=== PATIENT | female | born 1935 | race Caucasian/White ===

== ENCOUNTER → 2023-10-04 11:19 | Outpatient (REF) | payer OTHER, SELFPAY | LOC: RCS 11:19 | PROVIDERS: ATTENDING PHYSICIAN Internal Medicine; FAMILY PHYSICIAN Student in an Organized Health Care Education/Training Program | DX: I42.9 Cardiomyopathy, unspecified (principal); I50.22 Chronic systolic (congestive) heart failure; I34.0 Nonrheumatic mitral (valve) insufficiency; I35.1 Nonrheumatic aortic (valve) insufficiency | CPT/HCPCS: 93306 ==

== ENCOUNTER 2023-11-05 06:19 | Day surgery (SDC) | payer OTHER, SELFPAY ==
[2023-10-21 13:02] VITALS: BMI 22.0
[2023-10-21 13:38] LABS: % Basophils 0.7 % (0-2); % Eosinophils 3.3 % (0-6); % Immature Granulocytes 0.3 % (0-0.5); % Lymphocytes 34.5 % (20.5-51.1); % Monocytes 10.4 % (1.7-9.3); % Neutrophils 50.8 % (42.2-75.2); Absolute Eosinophils 0.2 10^3/uL (0-0.7); Absolute Lymphocytes 2.1 10^3/uL (1.2-3.4); Absolute Monocytes 0.6 10^3/uL (0.1-0.6); Absolute Neutrophils 3.1 10^3/uL (1.4-6.5); Hematocrit 35.1 % (37.0-47.0); Hemoglobin 11.7 g/dL (12.0-16.0); Mean Corp Hgb Conc. 33.3 g/dL (33.0-37.0); Mean Corpuscular Hgb 32.1 pg (27.0-31.0); Mean Corpuscular Volume 96.4 fL (81.0-99.0); Mean Platelet Volume 11.6 fL (7.4-10.4); Nucleated Red Blood Cells % 0 %; Platelet Count 266 10^3/uL (130-400); Red Blood Cell Count 3.64 10^6/uL (4.20-5.40); Red Cell Dist. Width 13.8 % (11.5-14.5); White Blood Cell Count 6.1 10^3/uL (4.8-10.8)
[2023-10-21 15:52] LABS: ALT (SGPT) 88 U/L (0-35); AST (SGOT) 65 U/L (14-36); Albumin 4.4 g/dl (3.5-5.0); Alkaline Phosphatase 190 U/L (38-126); Blood Urea Nitrogen 15 mg/dl (7-17); Calcium 9.6 mg/dl (8.4-10.2); Carbon Dioxide 26 mmol/L (22-30); Chloride 103 mmol/L (98-107); Estimated Creatinine Clearance 48 ml/min; Glucose 99 mg/dl (70-99); Potassium 4.5 mmol/L (3.5-5.1); Sodium 141 mmol/L (135-145); Total Bilirubin 0.9 mg/dl (0.2-1.3); Total Protein 6.9 g/dl (6.3-8.2); eGFR > 60.00
[2023-11-05] VITALS (14 sets, daily range): BP systolic 111–143; BP diastolic 55–81; BMI 19.9
--- NOTE | 2023-11-05 08:28 | ITS.CL.CATH ---
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
Cardiac Catheterization
Procedure Report:
CARDIAC CATHETERIZATION REPORT
Date of Procedure: 11/05/2023
Referring: AUGUSTO Napoles
Indication: New cardiomyopathy.
PROCEDURE:
1. Right heart catheterization.
2. Left heart catheterization.
3. Coronary angiography.
ACCESS:
6 Beninese right radial artery.
5 Beninese right antecubital vein.
CATHETERS:
1. 5 Beninese balloon wedge.
2. 5 Beninese JL 3.5.
3. 5 Beninese JR4.
HEMODYNAMIC DATA
Weight (kg): 57.6
AO (s/d/x mmHg): 99/53/73
LV (s/x mmHg): 102/6
PCWP (a/v/x mmHg):
PA (s/d/x mmHg): 25/16
RV (s/x mmHg): 26/5
RA (a/v/x mmHg):
SVC SvO2 (%): 74.4
PA SvO2 (%): 72.2
SaO2 (%): 95.1
Hbg (g/dL): 11.3
CO (L/min): 4.37
CI (L/min/m2): 2.62
TPG (mmHg): 10
PVR (Lujan Units): 2.29
SVR (dynes*seconds*cm^-5): 1227
AVO2 Diff (Volume %): 3.52
AV gradient (x, mmHg): None.
AV area (cm2): Normal
LEFT VENTRICULOGRAPHY: Not performed.
CORONARY ANGIOGRAPHY
Dominance: Right.
Left Main: Large size, trifurcating vessel. There is no coronary artery disease.
LAD: Normal size vessel which wraps around the apex and supplies the distal inferior septum. There is no coronary artery disease.
Ramus: Large size vessel that supplies the entire anterolateral wall. There is no coronary artery disease.
Circumflex: Large size, nondominant vessel that is essentially 1 large obtuse marginal giving rise to 2 daughter branches. There is no coronary artery disease.
RCA: Normal size, dominant vessel. There is no coronary artery disease.
INTERVENTIONS
None.
Closure Device: Vascular band for the right radial artery, manual pressure for the right antecubital vein.
Radiation dose (mGy): 232.74
DAP (cm2.Gy): 18.1876
Fluoroscopy time (minutes): 2.6
Sedation time (minutes): 10
CONCLUSIONS:
1. Right dominant circulation with no coronary artery disease.
2. Normal filling pressures (LVEDP = 6 mmHg, PCWP = 6 mmHg at 57.6 kg).
3. Preserved cardiac output/index (cardiac output = 4.37 L/min, cardiac index = 2.62 L/min/m�).
RECOMMENDATIONS:
1. Expectant management after cardiac catheterization via right radial/antecubital approach.
2. Limited weight bearing on the right wrist for one week.
3. Continue guideline directed medical therapy.
4. The patient is euvolemic. This should be considered her dry weight (57.6 kg).
5. Continue work on evaluation for nonischemic cardiomyopathy.
Copy to: Parth Springer M.D., Ph.D., AUGUSTO Napoles, Jose D Weinberg M.D.
Zaki Valderrama, , FACC, FACP
--- NOTE | 2023-11-05 11:40 | PTCARENOTE ---
approx 1132 pt developed heamatom after getting dressed for discharge. Pressure held immediatedly . notified counter tacker zoila de la rosa. 15 min hold and 30 additional min wait time for discharge
--- NOTE | 2023-11-05 12:10 | PTCARENOTE ---
rt wrist slightly ecchomotic, with good radial and ulnar pulses . without hematoma and , soft at site at this time . waiting for dr willis to see pt
--- NOTE | 2023-11-05 12:30 | PTCARENOTE ---
dr willis in to see pt and assess wrist. states she is ok to go home now. rt palpable radial pulse. some ecchomosis ,no hematoma
== END 2023-11-05 12:35 | disposition home or self-care (01) ==
LOC: CATH 06:19
PROVIDERS: ATTENDING PHYSICIAN Internal Medicine Cardiovascular Disease; FAMILY PHYSICIAN Student in an Organized Health Care Education/Training Program; OTHER PHYSICIAN Internal Medicine
DX: I50.22 Chronic systolic (congestive) heart failure (principal); I42.9 Cardiomyopathy, unspecified; I44.7 Left bundle-branch block, unspecified; I08.0 Rheumatic disorders of both mitral and aortic valves; E78.00 Pure hypercholesterolemia, unspecified; Z79.82 Long term (current) use of aspirin
CPT/HCPCS: 36415; 80053; 85025; 93005; 93460; C1894; Q9967

== ENCOUNTER → 2024-02-17 10:22 | Outpatient (REF) | payer OTHER, SELFPAY | LOC: RCS 10:22 | PROVIDERS: ATTENDING PHYSICIAN Nurse Practitioner; FAMILY PHYSICIAN Student in an Organized Health Care Education/Training Program | DX: I42.8 Other cardiomyopathies (principal) | CPT/HCPCS: 93306 ==

== ENCOUNTER 2024-03-13 06:58 | Day surgery (SDC) | payer OTHER, SELFPAY ==
--- NOTE | 2024-03-10 09:52 | HPS.HSE ---
Family Physician
-
Family Physician: NOT KNOW UNKNOWN - PT DOES
Chief Complaint
-
Nonischemic cardiomyopathy. Left bundle branch block.
History of Present Illness
The patient is an 88 year old female presenting today for nonischemic cardiomyopathy and left bundle branch block. The patient underwent an echocardiogram in September 2023 which revealed a reduced ejection fraction of 25-30%. Given her
cardiomyopathy, a cardiac catheterization was preformed. Catheterization, fortunately, revealed no obstructive coronary artery disease and normal filling pressures. She has been tolerating guideline directed medical therapy with Toprol and Entresto
over the last several months. Although she has been compliant with her advised medications, her ejection fraction continues to be reduced at 30-35%, as seen on her January 2024 follow-up echocardiogram. It is recommended she proceed with a
biventricular ICD implant at this time. She denies any current complaints today such as chest pain, shortness of breath, palpitations, nausea, vomiting, diarrhea, lightheadedness, dizziness, cough, sore throat, or fever.
Medical History
Past Medical History
Past Medical History: Reports Other
Additional Past Medical History:
1. Nonischemic cardiomyopathy, reduced ejection fraction.
2. Left bundle branch block.
3. Hypercholesterolemia.
4. Chronic systolic heart failure.
5. Mild valvular disease.
6. Osteoarthritis.
7. Skin cancer, upper lip, status post excision.
8. Insomnia.
Past Surgical History: Reports Other
Additional Past Surgical History:
1. Cardiac catheterization.
2. Left wrist fracture repair with hardware.
Social History
Tobacco: Non-smoker
Alcohol: Other (Social)
Living: Alone (She lives at [facility] [place]. )
Family History
Family History: Not pertinent
Allergies / Home Medications
Allergy/Medication List:
Home medications:
1. Atorvastatin 40 mg p.o. daily.
2. Benadryl 25 mg p.o. at bedtime as needed.
3. Furosemide 40 mg p.o. daily.
4. Melatonin 10 mg p.o. at bedtime as needed.
5. Metoprolol Succinate 25 mg p.o. daily.
6. Multivitamin 1 tablet p.o. daily.
7. Entresto 24-26 mg p.o. twice a day.
Allergies: No known allergies.
Review of Systems
-
A 12 point ROS was completed and negative except as noted: Yes
Physical Exam
Vital Signs
Blood pressure 143/75. Heart rate 55. Respirations 18. Pulse ox 99% on room air.
Height 5 feet, 4.5 inches. Weight 59 kg. BMI 22.0.
Physical Exam
General: Well Developed, Well Nourished and No Apparent Distress
HEENT: NormoCephalic, Moist mucous membranes, Atraumatic and PERRLA
Respiratory: Clear
Cardiac: Regular Rhythm
GI: Soft, Non Tender and Non Distended
Musculoskeletal: No Edema and Normal Gait & Station
Skin: Warm and Dry
Neuro: AO x 3 and Nonfocal/grossly intact
Psych: Anxious
Laboratory Results
-
DIAGNOSTIC STUDIES as of 03/10/2024: White blood cell count 6.0. Hemoglobin 12.5. Platelet count 226,000. Sodium 138. Potassium 4.3. BUN 17. Creatinine 0.7. Glucose 95. Calcium 9.4. AST 35. ALT 22. Albumin 4.6.
EKG 03/10/2023: Normal sinus rhythm. Left axis deviation. Left bundle branch block.
Echocardiogram 02/17/2024: Normal left ventricular size with moderately reduced systolic function. Global hypokinesis. Ejection fraction is 30-35%. Stage I diastolic dysfunction suggestive of abnormal relaxation. Normal right ventricular size and
function. No significant valvular disease. Mildly dilated aortic root (3.9 cm).
Cardiac catheterization 11/05/2023: Right dominant circulation with no coronary artery disease. Normal filling pressures (LVEDP = 6 mmHg, PCWP = 6 mmHg at 57.6 kg). Preserved cardiac output/index (cardiac output = 4.37 L/min, cardiac index = 2.62
L/min/m�).
Impression/Plan
-
IMPRESSION/PLAN:
1. Nonischemic cardiomyopathy and left bundle branch block: The patient is in need of a biventricular ICD implantation with Dr. Jair Steele on 03/13/2024. The benefits and risks of the procedure have been explained to the patient. The patient
understands these risks and wishes to proceed.
[2024-03-10 10:14] VITALS: BMI 22.0
[2024-03-10 10:50] LABS: % Basophils 0.5 % (0-2); % Eosinophils 1.7 % (0-6); % Immature Granulocytes 0.2 % (0-0.5); % Lymphocytes 36.9 % (20.5-51.1); % Monocytes 10.8 % (1.7-9.3); % Neutrophils 49.9 % (42.2-75.2); Absolute Eosinophils 0.1 10^3/uL (0-0.7); Absolute Lymphocytes 2.2 10^3/uL (1.2-3.4); Absolute Monocytes 0.7 10^3/uL (0.1-0.6); Hematocrit 36.9 % (37.0-47.0); Hemoglobin 12.5 g/dL (12.0-16.0); Mean Corp Hgb Conc. 33.9 g/dL (33.0-37.0); Mean Corpuscular Hgb 32.6 pg (27.0-31.0); Mean Corpuscular Volume 96.3 fL (81.0-99.0); Mean Platelet Volume 11.3 fL (7.4-10.4); Nucleated Red Blood Cells % 0 %; Platelet Count 226 10^3/uL (130-400); Red Blood Cell Count 3.83 10^6/uL (4.20-5.40); Red Cell Dist. Width 13.2 % (11.5-14.5)
[2024-03-10 11:10] LABS: ALT (SGPT) 22 U/L (0-35); AST (SGOT) 35 U/L (14-36); Albumin 4.6 g/dl (3.5-5.0); Alkaline Phosphatase 62 U/L (38-126); Blood Urea Nitrogen 17 mg/dl (7-17); Calcium 9.4 mg/dl (8.4-10.2); Carbon Dioxide 31 mmol/L (22-30); Chloride 99 mmol/L (98-107); Estimated Creatinine Clearance 49 ml/min; Glucose 95 mg/dl (70-99); Potassium 4.3 mmol/L (3.5-5.1); Sodium 138 mmol/L (135-145); Total Bilirubin 0.9 mg/dl (0.2-1.3); Total Protein 7.1 g/dl (6.3-8.2); eGFR > 60.00
[2024-03-13] VITALS (12 sets, daily range): BP systolic 102–143; BP diastolic 52–104
--- NOTE | 2024-03-13 08:48 | W.ICD.CONTRA ---
Post ICD/SUPERVISOR SPEECH-D
-
History of IL?: No
LV Function
Left ventricular function study result?: Ejection Fraction </= 35%
ACEI/ARB/ARNI
Patient already on ACEI/ARB/ARNI: Yes
Beta-Eliecer
Patient already on Beta Eliecer: Yes
--- NOTE | 2024-03-13 10:50 | ITS.CL.ICD ---
Carriage Dogger - ICD
Implantable Cardioverter Defibrillator
Procedure Report:
Date of Procedure: March 13, 2024.
Procedures: Biventricular ICD implant.
Indication: Primary prevention ICD. NYHA heart failure class: III for more than 12 months. 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 QRS duration 160 ms with a LBBB. No history of VT/VF. No history of
prior ID. Life expectancy exceeds 1 year.
Performing physician: Jair Steele MD, [facility].
Implants:
Pulse Generator: Medtronic; Model# DHFR2TH; Serial# [id number].
Atrial Lead: Medtronic: Model# 5076-45cm; Serial# [id number].
Right Ventricular Lead: Medtronic; Model# 2940C81; Serial# [id number].
Left Ventricular Lead: Medtronic; Model# 4798-88cm; Serial# [id number].
Technique: A time out was performed. A 10 mL upper extremity venogram demonstrated patent left/right axillary, and subclavian veins. The cephalic vein was not visualized. The procedure site was identified. The patient was anesthetized by the
anesthesia service. Preoperative cephazolin was administered. The patient was prepped and draped in the usual fashion. Local anesthetic was applied to the left prepectoral subcutaneous tissue. A 3 inch incision was made along the left deltopectoral
groove. Dissection was carried to the fascia. The deltopectoral fat pad was not found. The left axillary vein was accessed with three separate percutaneous micro- punctures without difficulty. The leads were introduced with hemostatic peel away
introducer sheaths. The right ventricular lead was placed at the right ventricular apical to mid septum. The right ventricular lead was secured to the pectoralis muscle and fascia with two 0-silk sutures. The atrial lead was then placed in the
right atrial appendage. The atrial lead was secured to the pectoralis muscle and fascia with two 0-silk sutures. The coronary sinus was accessed with the aid of the Delivery Hero Sure Valve [id number] system extend hook catheter within 1 to 2 minutes.
Coronary sinus venography (14 mL) revealed a nice lateral vein and a small posterior vein. The left ventricular lead was placed in the posterolateral vein with the tip terminating in the mid position where it was actively fixated. The LV lead was
secured to the pectoralis muscle and fascia. 8 volt pacing did not capture the diaphragm from any lead except when pacing from LV pole 1. At LV pole 1 diaphragmatic threshold was 3 V. A subcutaneous pocket was created with Bovie cautery. Hemostasis
was excellent. The leads were appropriately attached to the device. The pocket was irrigated with antibiotic solution. The device and leads were placed in the pocket. The device was secured to the pectoralis muscle with 0-silk suture. The incision
was closed in three layers with absorbable suture. Steri-strips and a silver impregnated dressing were placed. Estimated blood loss was 5 ml. There were no complications. Fluoroscopy time: 5.5 minutes and DAP 1.73 GyCM2. The device was then
interrogated after skin closure. Total IV contrast was 24 mL.
System Analysis:
RA lead: P: 0.75 mV; Threshold: 0.75 V @ 0.4 ms; Impedance: 450 ohms.
RV lead: R: 7 mV; Threshold: 0.5 V @ 0.4 ms; Impedance: 400 ohms.
LV lead (LV3=>LV1): R: 7 mV; Threshold: 0.5 V @ 0.4 ms; Impedance: 450 ohms.
There are multiple different LV pacing vectors with acceptable pacing characteristics. All electrical separation was 145 ms.
Final Programming: Tachy: VT/VF:188 bpm; Sarabjit: DDDR 60-120 bpm.
Conclusion: Uncomplicated BiV-ICD implant. The ICD system is system is MRI safe/conditional.
Recommendation: Routine post ICD care.
cc: Jose D Weinberg MD and Parth Springer MD,
[2024-03-13] MEDS: ANCEF 5 IV (13:50)
--- NOTE | 2024-03-13 14:04 | W.PN.UPDATE ---
Update Note
Progress Note Update
88 yo WF s/p BiV ICD Medtronic device implant (same day) she denies pain, sob, naren diet, amb w/o dizziness, CXR no PTX, leads in good position, EKG AsVp. She will continue GDMT for HF. Activity restrictions reviewed. She has incision check in 1
week. She is for d/c home after 2pm.
== END 2024-03-13 14:16 | disposition home or self-care (01) ==
LOC: CATH 06:58
PROVIDERS: ATTENDING PHYSICIAN Internal Medicine Cardiovascular Disease; FAMILY PHYSICIAN Student in an Organized Health Care Education/Training Program; OTHER PHYSICIAN Internal Medicine
DX: I50.22 Chronic systolic (congestive) heart failure (principal); I44.7 Left bundle-branch block, unspecified; E78.00 Pure hypercholesterolemia, unspecified; M19.90 Unspecified osteoarthritis, unspecified site; Z85.828 Personal history of other malignant neoplasm of skin; G47.00 Insomnia, unspecified; I42.0 Dilated cardiomyopathy; Z79.899 Other long term (current) drug therapy
CPT/HCPCS: 33249; 33228; 33225; 36415; 71045; 80053; 85025; 93005; C1769; C1777; C1882; C1887; C1892; C1898; C1900; Q9967

== ENCOUNTER → 2024-08-13 15:44 | Outpatient (REF) | payer OTHER, SELFPAY | LOC: RCS 15:44 | PROVIDERS: ATTENDING PHYSICIAN Internal Medicine; FAMILY PHYSICIAN Student in an Organized Health Care Education/Training Program | DX: I50.22 Chronic systolic (congestive) heart failure (principal); I34.0 Nonrheumatic mitral (valve) insufficiency; I35.1 Nonrheumatic aortic (valve) insufficiency; I44.7 Left bundle-branch block, unspecified | CPT/HCPCS: 93306 ==